=== PATIENT | female | born 1975 | race Caucasian/White ===

== ENCOUNTER 2016-09-15 06:00 | Day surgery (SDC) | payer BC ==
[~2016-09-15 06:00] MED LIST: ALFALFA250 MG PO; BLEPHAMIDE EYE3.5 G1 OP; MULTIVITAMINS1 EAC6 PO; PRIMROSE; SUPER B COMPL PO; TRINESSA TABLE1 EACH PO; ZYRTEC10 M7 PO; [UNRECOGNIZED DRUG - CODE] PO
[2016-09-16] MEDS ORDERED: IBUPROFEN800 M1 PO (10:33)
[2016-09-16] MEDS ORDERED: PERCOCET 5-3251 EACH PO (10:37)
== END 2016-09-16 11:20 ==
LOC: WSU 06:00 → SHSC 06:01 → ORW 07:58 → PACU 10:12 → OBGF 12:00
PROC: 0UT94ZZ Resection of Uterus, Percutaneous Endoscopic Approach (ICD-10-PCS; principal; 2016-09-15)
PROC: 0UTC4ZZ Resection of Cervix, Percutaneous Endoscopic Approach (ICD-10-PCS; 2016-09-15)
PROC: 0UT74ZZ Resection of Bilateral Fallopian Tubes, Percutaneous Endoscopic Approach (ICD-10-PCS; 2016-09-15)
PROC: 8E0W4CZ Robotic Assisted Procedure of Trunk Region, Percutaneous Endoscopic Approach (ICD-10-PCS; 2016-09-15)
DX: D25.1 Intramural leiomyoma of uterus (principal); N83.8 Other noninflammatory disorders of ovary, fallopian tube and broad ligament; K21.9 Gastro-esophageal reflux disease without esophagitis; Z79.899 Other long term (current) drug therapy
CPT/HCPCS: J0690; J1170; J2250; J2405; J3010; J7030